=== PATIENT | female | born 1945 | race Caucasian/White ===

== ENCOUNTER → 2021-01-03 | Outpatient (CLI) | payer MEDICARE | LOC: ECHO 12-09 09:00 → NM 12-09 09:00 | DX: R07.89 Other chest pain (principal); M17.10 Unilateral primary osteoarthritis, unspecified knee; M81.0 Age-related osteoporosis without current pathological fracture; R06.02 Shortness of breath; M48.00 Spinal stenosis, site unspecified; I11.9 Hypertensive heart disease without heart failure | CPT/HCPCS: ECHO; 78452; 93017; 93306; A9502; J2785 ==

== ENCOUNTER 2021-09-03 15:35 | Emergency (ER) | payer MEDICARE ==
[2021-09-03 17:51] LABS: HEMOGLOBIN 14.8 gm/dl (12.3-15.3); RED BLOOD COUNT 4.45 M/UL (4.00-5.10); WHITE BLOOD COUNT 9.6 K/UL (4.5-11.0)
[2021-09-03] MEDS ORDERED: ENDOCET 5-3251 EACH PO (18:49)
== END 2021-09-03 19:20 | disposition home or self-care (01) ==
LOC: ER1 15:35
PROVIDERS: Emergency Medicine
DX: R55 Syncope and collapse (principal); S92.322A Displaced fracture of second metatarsal bone, left foot, initial encounter for closed fracture; S92.332A Displaced fracture of third metatarsal bone, left foot, initial encounter for closed fracture; S92.342A Displaced fracture of fourth metatarsal bone, left foot, initial encounter for closed fracture; S00.83XA Contusion of other part of head, initial encounter; S60.512A Abrasion of left hand, initial encounter; I10 Essential (primary) hypertension; K21.9 Gastro-esophageal reflux disease without esophagitis; W19.XXXA Unspecified fall, initial encounter
CPT/HCPCS: 70450; 70486; 71045; 73610; 73630; 80053; 82550; 82553; 83880; 84484; 85025; 90471; 90715; 93005; 99284